=== PATIENT | male | born 1955 | race Caucasian/White ===

== ENCOUNTER 2023-04-14 15:09 | Emergency (ER) | payer BC, SELFPAY ==
[2023-04-14] VITALS (17 sets, daily range): BP systolic 116–131; BP diastolic 53–70; PULSE 76–84; RESP 14–21; TEMP 36.8; O2SAT 95–100
--- NOTE | ~2023-04-14 | XR_ITS ---
EXAMINATION: XR foot RT 2V DATE: 04/14/2023 19:41 INDICATION: Infection with wound to the medial plantar first metatarsal. TECHNIQUE: Dorsoplantar and lateral views of the right foot were obtained. COMPARISON: None. FINDINGS: Alignment is normal. No fracture. Mild osteoarthritis at the first metatarsophalangeal joint. There i s prominent soft tissue swelling about the right foot and ankle. Multiple foci of soft tissue gas in the soft tissues medial to the first metatarsophalangeal joint and extending proximally plantar to th e first and second metatarsals which raises concern for necrotizing fasciitis. No evident cortical er osions to suggest ostomy myelitis. Small plantar calcaneal spur. IMPRESSION: 1. Soft tissue gas at the plantar medial aspect of the forefoot which raise concern for necrotizing f asciitis. No evident associated osteomyelitis or other acute osseous abnormality. Dr. Hernesto dyer sed these findings with Dr. Felix at 7:53 PM. Reviewed, dictated and finalized at location A. ICAL PATHOLOGIST IMPRESSION: 1. Soft tissue gas at the plantar medial aspect of the forefoot which raise con cern for necrotizing fasciitis. No evident associated osteomyelitis or other ac [place] osseous abnormality. Dr. Eric discussed these findings with Dr. Isidro leon 7:53 PM.
--- NOTE | 2023-04-14 19:10 | ECG_ITS ---
Measurements Intervals [place] Rate: 73 P: 31 [place]: 158 QRS: 29 QRSD: 116 T: 20 QT: 387 QTc: 427 Interpretive Statements SINUS RHYTHM WITH SINUS ARRHYTHMIA LOW QRS VOLTAGE IN PRECORDIAL LEADS [QRS DEFLECTION < 1.0 mV IN CHEST LEADS] RIGHT BUNDLE BRANCH BLOCK [120+ ms QRS DURATION, UPRIGHT V1, 40+ ms S IN I/aVL/V4/V5/V6] NO PREVIOUS ECG AVAILABLE FOR COMPARISON Electronically Signed On 04-15-2023 12:36:32 [employer] by Timothy Sanchez M.D.
--- NOTE | 2023-04-14 19:15 | ED.LOWEXIN ---
HPI - Extremity Injury (Lower) General Chief Complaint: Extremity Injury, Lower Stated Complaint: infected right foot Time Seen by Provider: 04/14/23 18:58 Source: patient and family Limitations: no limitations History of Present Illness HPI Narrative: Patient is a 68-year-old male presents to the emergency department accompanied by his family for a infection of his right foot. Patient states the he noticed a callus right 1st MTP region partially 2 weeks ago and he was messing with a and over the past 3-4 days has been noticing infection develop which he describes as follows swelling pus coming from the wound in addition to yellow drainage and redness surrounding her wound, patient admits to some slight associated swelling of his right leg for approximately the mid calf down. 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 Patient denies any recent antibiotic use. Patient admits to being a diabetic. 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 Patient denies any pain. Patient denies fever, nausea, vomiting, difficulty breathing, history of blood clots, recent injuries, recent illness. Related Data Allergies Allergy/AdvReac Type Severity Reaction Status Date / Time No Known Allergies Allergy Verified 04/14/23 19:36 Review of Systems Review of Systems: A 10 system review of systems was completed on the patient and is negative except for what is stated in the HPI. Nursing and ancillary documentation was reviewed. PMFSH Comments At time of signature, I have reviewed and agree with nursing past medical, surgical, social and family history unless otherwise noted. Please see the nursing chart for further information. There is no relevant family history pertinent to the presenting complaint. Exam Narrative: CONST: No acute distress. Well nourished. HENMT: Head is normocephalic and atraumatic. Moist mucous membranes. No posterior oropharynx erythema. EYES: No conjunctival icterus, injection, or pallor. PERRL. NECK: No meningeal signs. RESP: Able to speak in full sentences. Normal respiratory effort. CTAB. CARDIO: Regular rate. Regular rhythm. 2+ DP and radial pulses bilaterally. GI: Nondistended. No tenderness to palpation. Soft. : No CVA tenderness to palpation. SKIN: No rashes. Two ulcers present on the right foot over the plantar aspect of the 1st MTP and the medial aspect of the 1st MTP, the medial aspect is approximately 1 cm in diameter and the plantar aspect ulcer is approximately 1.5 cm in diameter, both have purulence and foul-smelling discharge, there is associated erythema surrounding the wounds that extends to the medial midfoot, wounds do not probe to the bone. Compartments are soft throughout, capillary refill is approximately 3-4 seconds throughout the bilateral lower extremities. There is trace nonpitting right lower extremity edema for approximately the mid calf distally. NEURO: Oriented x3. Moves all extremities. No focal neurological deficits. EXTREM/MSK/BACK: Active range of motion grossly intact. PSYCH: Normal affect. Course Vital Signs Vital signs: Vital Signs Temperature 98.3 F 04/14/23 15:11 Pulse Rate 84 04/14/23 15:11 Respiratory Rate 19 04/14/23 15:11 Blood Pressure 131/59 L 04/14/23 15:11 Pulse Oximetry 100 04/14/23 15:11 Oxygen Delivery Room Air 04/14/23 15:11 Temperature 98.3 F 04/14/23 15:11 Pulse Rate 78 04/14/23 21:16 Respiratory Rate 17 04/14/23 21:16 Blood Pressure 119/60 04/14/23 21:16 Pulse Oximetry 97 04/14/23 21:16 Oxygen Delivery Room Air 04/14/23 15:11 MDM - Extremity Injury (Lower) MDM Narrative Medical decision making narrative: Patient presents w
[2023-04-14 19:44] LABS: Basophils Absolute Auto 0.1 K/mm3 (0.0-0.1); Basophils Percent Auto 0.4 % (0.2-1.2); Eosinophils Absolute Auto 0.1 K/mm3 (0-0.3); Eosinophils Percent Auto 0.9 % (0-4.4); Hematocrit 35.1 % (42.0-52.0); Hemoglobin 11.2 g/dL (14.0-18.0); Immature Granulocyte Absolute 0.07 K/mm3 (0.00-0.031); Immature Granulocyte Percent A 0.6 % (0-0.5); Lymphocytes Absolute Auto 0.61 K/mm3 (0.9-3.2); Lymphocytes Percent Auto 5.4 % (18.3-44.2); Mean Corpuscular HGB Conc 31.9 g/dl (32-36); Mean Corpuscular Hemoglobin 31.5 pg (26-34); Mean Corpuscular Volume 98.6 fl (80-100); Mean Platelet Volume 10.1 fl (7.4-10.4); Monocytes Percent Auto 8.4 % (2.6-8.5); Neutrophils Absolute Auto 9.6 K/mm3 (1.3-6.7); Neutrophils Percent Auto 84.3 % (45.5-73.1); Platelet Count Result 157 k/mm3 (150-375); Red Blood Count 3.56 M/mm3 (4.6-6.20); Red Cell Distribution Width 13.5 % (11.5-14.5); White Blood Count 11.4 K/mm3 (4.5-10.0)
[2023-04-14 19:53] LABS: Lactic Acid Reflex 1.8 mmol/L (0.7-2.0)
[2023-04-14 19:54] LABS: Alanine Aminotransferase 58 U/L (6-50); Albumin Level 3.5 g/dL (3.5-5.1); Alkaline Phosphatase 311 U/L (38-126); Anion Gap 6 mmol/L (8-16); Aspartate Amino Transferase 74 U/L (17-59); Bilirubin,Total 1.5 mg/dL (0.2-1.3); Blood Urea Nitrogen 21 mg/dL (9-20); Calcium 8.4 mg/dL (8.4-10.2); Carbon Dioxide 30 mmol/L (22-30); Chloride 98 mmol/L (98-107); Estimated CRCL calculation 69 ml/min; Estimated Glomerular Filt Rate > 60; Glucose 253 mg/dL (65-110); Potassium 3.9 mmol/L (3.4-5.0); Sodium 134 mmol/L (137-145)
[2023-04-14 19:58] LABS: INR 1.2; Magnesium 2.3 mg/dL (1.6-2.3); Partial Thromboplastin Time 30.6 SECONDS (22.3-36.8); Prothrombin Time 15.3 Seconds (11.1-14.7)
[2023-04-14] MEDS: CEFEPIME 2 GM/NS 50 ML 2 GM/50 ML BAG IVPB (20:10)
[2023-04-14 20:16] LABS: CRP 20.7 mg/dL (<1.0)
[2023-04-14 20:19] LABS: Influenza A QL RT-PCR Negative (Negative); Influenza B QL RT-PCR Negative (Negative); RSV RNA, RT-PCR Negative (Negative); SARS-CoV-2 RNA PCR Negative (Negative)
[2023-04-14] MEDS: metroNIDAZOLE 500 MG/ISO 100ML 500 MG/100 ML BAG 100 MG IVPB (20:26)
[2023-04-14 20:33] LABS: Erythrocyte Sedimentation Rate 84 mm/hr (0-20)
[2023-04-14] MEDS: VANCOMYCIN 1,250 MG/NS 250 ML 1,250 MG/250 ML BAG 166.67 MG IVPB (21:34)
== END 2023-04-14 23:15 | disposition short-term general hospital (02) ==
PROVIDERS: Emergency Provider Student in an Organized Health Care Education/Training Program; PCP Internal Medicine
DX: E11.621 Type 2 diabetes mellitus with foot ulcer (principal); L97.519 Non-pressure chronic ulcer of other part of right foot with unspecified severity; L08.9 Local infection of the skin and subcutaneous tissue, unspecified; M72.6 Necrotizing fasciitis; Z20.822 Contact with and (suspected) exposure to COVID-19; I45.10 Unspecified right bundle-branch block
CPT/HCPCS: 36415; 73620; 80053; 83605; 83735; 85025; 85380; 85610; 85652; 85730; 86140; 87040; 87070; 87181; 87205; 87637; 93005; 96365; 96366; 96367; 99285; J0692; J1836; J3370